=== PATIENT | female | born 1940 | race Caucasian/White ===

== ENCOUNTER → 2023-10-30 08:45 | Outpatient (REF) | payer MEDICARE, OTHER, SELFPAY ==
[2023-10-30 09:14] LABS: % Basophils 0.5 % (0-2); % Eosinophils 1.7 % (0-6); % Immature Granulocytes 0.2 % (0-0.5); % Lymphocytes 16.5 % (20.5-51.1); % Monocytes 15.3 % (1.7-9.3); % Neutrophils 65.8 % (42.2-75.2); Absolute Eosinophils 0.1 10^3/uL (0-0.7); Absolute Lymphocytes 0.7 10^3/uL (1.2-3.4); Absolute Monocytes 0.6 10^3/uL (0.1-0.6); Absolute Neutrophils 2.8 10^3/uL (1.4-6.5); Hematocrit 29.6 % (37.0-47.0); Hemoglobin 9.4 g/dL (12.0-16.0); Mean Corp Hgb Conc. 31.8 g/dL (33.0-37.0); Mean Corpuscular Volume 97.7 fL (81.0-99.0); Mean Platelet Volume 9.4 fL (7.4-10.4); Nucleated Red Blood Cells % 0 %; Platelet Count 179 10^3/uL (130-400); Red Blood Cell Count 3.03 10^6/uL (4.20-5.40); Red Cell Dist. Width 14.4 % (11.5-14.5); White Blood Cell Count 4.2 10^3/uL (4.8-10.8)
== END ==
LOC: REG 08:45
PROVIDERS: ATTENDING PHYSICIAN Family Medicine
DX: D64.9 Anemia, unspecified (principal)
CPT/HCPCS: 36415; 85025

== ENCOUNTER 2023-11-18 11:20 | Outpatient (RCR) | payer MEDICARE, OTHER, SELFPAY | END 2023-11-18 23:59 | disposition home or self-care (01) | LOC: RPT 11:20 | PROVIDERS: ATTENDING PHYSICIAN Nurse Practitioner Pediatrics; FAMILY PHYSICIAN Family Medicine | DX: R26.89 Other abnormalities of gait and mobility (principal); Z73.6 Limitation of activities due to disability; Z96.642 Presence of left artificial hip joint; S73.005D Unspecified dislocation of left hip, subsequent encounter; X50.9XXD Other and unspecified overexertion or strenuous movements or postures, subsequent encounter | CPT/HCPCS: 97110; 97162; 97530 ==

== ENCOUNTER 2023-12-16 10:45 | Outpatient (RCR) | payer MEDICARE, OTHER, SELFPAY | END 2023-12-16 23:59 | disposition home or self-care (01) | LOC: RPT 10:45 | PROVIDERS: ATTENDING PHYSICIAN Nurse Practitioner Pediatrics; FAMILY PHYSICIAN Family Medicine | DX: S73.005A Unspecified dislocation of left hip, initial encounter (principal); R26.89 Other abnormalities of gait and mobility; Z96.642 Presence of left artificial hip joint; Z73.6 Limitation of activities due to disability | CPT/HCPCS: 97110; 97530 ==

== ENCOUNTER 2024-01-18 11:01 | Outpatient (RCR) | payer MEDICARE, OTHER, SELFPAY | END 2024-01-18 23:59 | disposition home or self-care (01) | LOC: RPT 11:01 | PROVIDERS: ATTENDING PHYSICIAN Nurse Practitioner Pediatrics; FAMILY PHYSICIAN Family Medicine | DX: S73.005D Unspecified dislocation of left hip, subsequent encounter (principal); Z96.642 Presence of left artificial hip joint; R26.89 Other abnormalities of gait and mobility; Z73.6 Limitation of activities due to disability | CPT/HCPCS: 97110; 97530 ==

== ENCOUNTER 2024-01-24 13:04 | Emergency (ER) | payer MEDICARE, OTHER, SELFPAY ==
[2024-01-24] VITALS (10 sets, daily range): BP systolic 104–136; BP diastolic 50–102; BMI 29.4
--- NOTE | 2024-01-24 14:34 | ED.GENMED ---
History of Present Illness
General
Chief Complaint: Musculo-Skeletal Complaint
Source: patient
Time Seen by Provider: 01/24/24 13:56
Travel History
Have you had any contact with someone who has COVID-19?: No
Do you have any symptoms of coronavirus? Fever > 100 degrees, chills, cough, shortness of breath, sore throat, loss of taste or smell, muscle aches, or headache?: No
History of Present Illness
History of Present Illness:
83-year-old female who was in the garden gardening, says she was 'just cleared to bend' by her orthopedic doctor, bent over to excelsior picker a stool and felt a 'pop' and dislocated her left hip. She denies numbness, tingling, head injury, neck pain,
chest pain, shortness of breath, or other complaints. Patient had a hip dislocation a few months ago that was reduced in the emergency department and has been doing well since.
Past History
Past History
ED Past Medical History: GERD, HTN, Hypercholesterolemia, Hypothyroidism, Psychiatric (anxiety, depression) and Other (Migraines, Essential tremors, Diverticulitis, IBS, )
ED Past Surgical History: Orthopedic (Bilateral knee replacements. Bila hip replacements. )
Social History
Tobacco: Former smoker
Alcohol: Occasional
Drug: None
Personal:
Living: alone
Family History
Family History: CAD
Phy Exam
Physical Exam
Physical Exam:
GENERAL: Alert , in no apparent distress
EYE: pupils equal and reactive
NECK: Supple, no significant adenopathy.
ENT: o/p clr, mmm.
CARDIAC: Regular rate and rhythm .
LUNGS: Clear breath sounds bilaterally, no acute respiratory distress, no wheezes/rales/rhonchi
ABDOMEN: Soft, without focal tenderness, no r/g, no cvat
NEUROLOGICAL: Alert and oriented, no focal neuro deficits, baseline tremor noted
SKIN: Warm and dry, skin intact.
MUSCULOSKELETAL: No edema, well perfused. L hip shortened and int rotated, nl pulses
PSYCH: Normal and appropriate interaction.
Course
Orders/Labs/Results
Orders:
Orders
01/24/24 13:17
Hip, Left 1 View [CR Hip - LT without Pel 1 Vw] Urgent
Comment: portable please.
Reason For Exam: dislocation
01/24/24 13:49
Propofol [Diprivan] 20 ml .ROUTE .STK-MED
01/24/24 14:39
Hip, Left 1 View [CR Hip - LT without Pel 1 Vw] Urgent
Comment:
Reason For Exam: post reduction. Portable please
Vital Signs
Initial and Last Documented VS:
Initial Vital Signs
Temp Pulse Resp BP Pulse Ox
98.2 F 75 16 114/102 99
01/24/24 14:24 01/24/24 14:24 01/24/24 14:24 01/24/24 14:24 01/24/24 14:24
Last Documented Vital Signs
Temp Pulse Resp BP Pulse Ox
97.9 F 70 16 118/76 97
01/24/24 14:55 01/24/24 15:10 01/24/24 15:10 01/24/24 15:10 01/24/24 15:10
Procedures
Moderate Sedation
ASA Risk Score: Class II
Chart and allergies reviewed: Yes
Consent for anesthesia obtained: Yes
Time out completed (validating right patient & procedure): Yes
Moderate Sedation Start Time(when first medication is given): 14:27
History of difficult intubation: No
Airway free of obstruction: Yes
Patient has a gag reflex: Yes
Patient is able to open mouth: Yes
Patient has no dentures: Yes
Patient has no loose teeth: Yes
Medication administered by Provider during Moderate Sedation: IV Propofol (mg)
Total dose administered: 100
Time drug administered: 14:27
Moderate Sedation Procedure End Time: 14:37
Joint/Fracture Reduction
Left Hip:
Joint reduced: with anesthesia sedation
Injury was: closed
Further treatement: no treatment needed
Post reduction exam: stable
Capillary Refill: normal
Normal distal neurovascular exam?: Yes
*Critical Care Note
Total Time (30-74mins, 75-104mins- exclusive of procedures): Not Applicable
Update Note
Update Note:
Patient presents to the Emergency Department with left hip pain____
Number and Complexity of Problems Addressed at the Encounter
� Chronic conditions affecting care:
� Acute Exacerbation and/or Progression of Chronic Illness:
� Differential Diagnosis includes: But not limited to dislocation, fracture, strain, etc.
Amount and/or Complexity of Data to be Reviewed and Analyzed
� I performed an independent evaluation of and my interpretation is:
EKG:
CT:
Xrays: Read by me left superior hip dislocation noted
Laboratory Studies:
Other:
� Review of other/old records reveals:
� Clinical information was obtained by an independent historian:
� Prescriptions/Medications Considered but not given:
� Further testing considered but not performed:
Risk of Complications and/or Morbidity or Mortality of Patient Management
� Social determinants of health affecting care:
� Discussion with other providers (PCP, Hospitalists, Consultants, etc):
� Escalation of care including admission/observation vs risk of discharge considered: Status post procedural sedation hip reduced smoothly. Postreduction x-ray consistent with adequate reduction no fracture etc. [place] text sent
to Dr. Barlow and he responded, aware of events today and my recommendations for her to follow-up with him and be discharged in a knee immobilizer. Discussed with patient importance of follow-up and reasons to return to the ER.
ED Attending Note
-
Portions of this chart may have been created with voice recognition software.� Occasional wrong word or��sound alike� substitutions may have occurred due to the inherent limitations of voice recognition software.
Discharge Plan
Departure
Patient Disposition: Home (Routine Discharge)
Date of Disposition: 01/24/24
Time of Disposition: 15:29
Patient with high blood pressure during this ER visit?: Yes
Condition: Good
Discharge Problem:
hip dislocation, procedual sedation
Instructions: Hip Dislocation, MODERATE SEDATION ADULT, BLOOD PRESSURE
Prescriptions:
No Action
levothyroxine [Levoxyl] 50 MCG tablet
50 mcg PO DAILY
fluoxetine 20 MG capsule
20 mg PO DAILY
atorvastatin 20 mg Tablet
20 mg PO HS
omeprazole 20 mg Tablet,Delayed Release (Dr/Ec)
20 mg PO DAILY
multivitamin Tablet
1 tab PO DAILY
cholecalciferol (vitamin D3) [Vitamin D3] 50 mcg (2,000 unit) Tablet
50 mcg PO DAILY
docusate sodium 100 mg Capsule
100 mg PO BID Qty: 30 0RF
lidocaine 4 % Adhesive Patch,Medicated
2 patch topical DAILY Qty: 30 0RF
Rx Instructions:
apply to lower back
meloxicam 15 mg Tablet
15 mg PO DAILY Qty: 14 0RF
Rx Instructions:
Take with food.
DO NOT take within 2 hours of Aspirin.
sennosides [Senna Lax] 8.6 mg Tablet
17.2 mg PO BIDPRN PRN (Reason: constipation) Qty: 30 0RF
Rx Instructions:
Add to bowel regimen of Colace and fiber if no bowel movement occurs within next 3 days.
gabapentin 100 mg Capsule
200 mg PO TID Qty: 30 0RF
ondansetron HCl 4 mg tablet
4 mg PO Q6H PRN (Reason: nausea and vomiting) Qty: 30 0RF
lorazepam 0.5 MG tablet
0.5 mg PO Q8H PRN (Reason: anxiety) Qty: 0 0RF
Patient Comments:
08/19/2023: last filled 03/18/22, 90 tabs for 90 days from [facility]
Rx Instructions:
Home medication.
USE SPARINGLY WHILE ON DILAUDID TO PREVENT FALLS AND OVERSEDATION.
hydrochlorothiazide 12.5 mg Tablet
12.5 mg PO DAILY Qty: 0 0RF
Rx Instructions:
HOLD IF systolic blood pressure <130 while on Dilaudid.
metoprolol succinate [Toprol XL] 50 mg Tablet Extended Release 24 Hr
50 mg PO BID
calcium polycarbophil [FiberCon] 625 mg Tablet
625 mg PO DAILY
IBgard 90 mg Capsule,Delayed,Extend.Release
90 mg PO BIDPRN PRN (Reason: ibs)
ferrous sulfate 325 mg (65 mg iron) tablet
325 mg PO DAILY Qty: 60 0RF
Rx Instructions:
Over the counter.
Take daily to help with anemia.
acetaminophen [Tylenol Extra Strength] 500 mg tablet
1,000 mg PO Q6H PRN (Reason: mild pain)
Rx Instructions:
DO NOT exceed >4000 mg daily.
cephalexin 750 mg capsule
750 mg PO BID 3 Days Qty: 6 0RF
aspirin 325 mg Tablet
325 mg PO DAILY Qty: 30 0RF
Rx Instructions:
Stop taking 09/05/23
Referrals:
Aguila Conroy MD [Family Provider] -
Maximo Barlow MD [Active] - Next open appointment
Activity Restrictions/Additional Instructions:
PLEASE KEEP THE KNEE IMMOBILIZER ON MUCH POSSIBLE, AND CONTINUE TO FOLLOW PRECAUTIONS TO AVOID FURTHER EVENTS OF DISLOCATION. PLEASE CONTACT YOUR ORTHOPEDIC DOCTOR IN THE MORNING TO ARRANGE FOR FOLLOW UP. IF YOU DEVELOP SWELLING, FEVER,
NUMBNESS, WEAKNESS, INCREASING/NEW PAIN, OR OTHER WORRISOME SIGNS, GO TO THE ER IMMEDIATELY!
Interventions
Interventions:
*Risk Screen - Suicide Last Done: 01/24/24 13:12
*General Assessment Last Done: 01/24/24 13:12
*Neglect/Abuse Screening Last Done: 01/24/24 13:12
*ED COVID-19 Vaccine History Last Done: 01/24/24 13:12
ED-Musculoskeletal Assessment Last Done: 01/24/24 13:12
Discharge Date and Time
Print Language: SAMMARINESE
== END 2024-01-24 16:41 | disposition home or self-care (01) ==
LOC: EMR 13:04
PROVIDERS: EMERGENCY PHYSICIAN Emergency Medicine; FAMILY PHYSICIAN Family Medicine
DX: T84.021A Dislocation of internal left hip prosthesis, initial encounter (principal); X50.1XXA Overexertion from prolonged static or awkward postures, initial encounter; I10 Essential (primary) hypertension; Z87.891 Personal history of nicotine dependence
CPT/HCPCS: 27266; 99285; 99152; 73501

== ENCOUNTER → 2024-01-31 13:16 | Outpatient (REF) | payer MEDICARE, OTHER, SELFPAY ==
[2024-01-31 14:33] LABS: % Basophils 0.4 % (0-2); % Eosinophils 1.4 % (0-6); % Immature Granulocytes 0.2 % (0-0.5); % Lymphocytes 17.6 % (20.5-51.1); % Monocytes 11.5 % (1.7-9.3); % Neutrophils 68.9 % (42.2-75.2); Absolute Eosinophils 0.1 10^3/uL (0-0.7); Absolute Lymphocytes 0.9 10^3/uL (1.2-3.4); Absolute Monocytes 0.6 10^3/uL (0.1-0.6); Absolute Neutrophils 3.4 10^3/uL (1.4-6.5); Hematocrit 31.7 % (37.0-47.0); Hemoglobin 10.6 g/dL (12.0-16.0); Mean Corp Hgb Conc. 33.4 g/dL (33.0-37.0); Mean Corpuscular Hgb 30.5 pg (27.0-31.0); Mean Corpuscular Volume 91.1 fL (81.0-99.0); Nucleated Red Blood Cells % 0 %; Platelet Count 210 10^3/uL (130-400); Red Blood Cell Count 3.48 10^6/uL (4.20-5.40); Red Cell Dist. Width 13.9 % (11.5-14.5); White Blood Cell Count 4.9 10^3/uL (4.8-10.8)
[2024-01-31 14:43] LABS: Erythrocyte Sed Rate 28 mm/hour (0-20)
[2024-01-31 14:57] LABS: HDL Cholesterol 80 mg/dl; Iron 81 ug/dl (37-170); LDL Cholesterol, Calculated 33 mg/dl; Total Cholesterol 132 mg/dl (50-199); Triglyceride 95 mg/dl (10-149); Very Low Density Lipoprotein 19 mg/dl (0-30)
[2024-01-31 15:05] LABS: Percent Saturation 28 % (20-50); Total Iron Binding Capacity 284 ug/dl (265-497)
== END ==
LOC: REG 13:16
PROVIDERS: ATTENDING PHYSICIAN Physician Assistant Surgical; FAMILY PHYSICIAN Family Medicine; OTHER PHYSICIAN Internal Medicine Cardiovascular Disease
DX: M25.552 Pain in left hip (principal); D64.9 Anemia, unspecified; E78.2 Mixed hyperlipidemia; I25.10 Atherosclerotic heart disease of native coronary artery without angina pectoris
CPT/HCPCS: 36415; 73700; 80061; 83540; 83550; 85025; 85652; 86140

== ENCOUNTER 2024-03-15 08:08 | Inpatient (IN) | payer MEDICARE, OTHER, SELFPAY ==
--- NOTE | 2024-02-15 09:05 | CM ---
Patient is scheduled for a L TH Revision on 03/15/24. Spoke with patient prior to surgery via telephone. Patient had a L THR (July 2023)and R THR (April 2023) at . Reintroduced role of Orthopedic Navigator. Patient reports that she lives
alone in a two story home. There is one step to enter and 13 steps to full bathroom and bedroom. There is half bath on entry level management. She is staying on the first floor and will do so after this surgery. She currently functions independently and uses
a rolling walker outside of the house. She also has a cane, hip kit and raised toilet seat. She has had services through [facility]. PCP is Dr. Conroy.
Discussed orthopedic program and post surgical plans. Reviewed anticipated length of stay and that goal is for her to return home at discharge. Also reviewed outpatient PT. Patient will need home care as she lives alone and does not have transport
for therapy. She states that her son will stay with her when she first goes home. She anticipates a two night length of stay.
Patient will complete online education.
Plan: Orthopedic Navigator will remain available to assist with the care of patient and will reassess discharge needs after surgery.
[2024-02-23 12:29] VITALS: BMI 27.9
[2024-02-23 14:48] LABS: Hematocrit 30.7 % (37.0-47.0); Hemoglobin 10.5 g/dL (12.0-16.0); Mean Corp Hgb Conc. 34.2 g/dL (33.0-37.0); Mean Corpuscular Hgb 31.3 pg (27.0-31.0); Mean Corpuscular Volume 91.4 fL (81.0-99.0); Mean Platelet Volume 10.1 fL (7.4-10.4); Platelet Count 190 10^3/uL (130-400); Red Blood Cell Count 3.36 10^6/uL (4.20-5.40); Red Cell Dist. Width 14.2 % (11.5-14.5); White Blood Cell Count 5.1 10^3/uL (4.8-10.8)
--- NOTE | 2024-02-23 15:40 | HPS.HSE ---
Family Physician
-
Family Physician: Aguila Conroy
Chief Complaint
-
Recurrent dislocation of left hip.
History of Present Illness
The patient is an 83 year old female presenting today for a recurrent dislocation of her left hip. The patient previously underwent a left total hip arthroplasty with Dr. Maximo Barlow in July 2023. Unfortunately, since then, she has
sustained 2 dislocations, the last most recently while picking weeds in her garden. Her recurrent dislocations are greatly interfering with her activities of daily living and are overall impacting her quality of life. It is advised she proceed with
a revision of her left total hip arthroplasty at this time. She denies any current complaints today such as chest pain, shortness of breath, nausea, vomiting, diarrhea, lightheadedness, dizziness, cough, sore throat, or fever.
Medical History
Past Medical History
Past Medical History: Reports Other
Additional Past Medical History:
1. Recurrent left hip dislocation.
2. Osteoarthritis, status post left total hip arthroplasty, 07/2023, by Dr. Maximo Barlow, left total knee arthroplasty, 2017, by Dr. Benito Velez, and right total knee arthroplasty, 2020, by Dr. Benito Velez.
3. 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 Maximo Barlow.
4. Hypertension.
5. Hyperlipidemia.
6. Coronary artery calcifications on previous CT scan.
7. Orthostatic hypotension after right total hip arthroplasty.
8. History of vasovagal syncope.
9. Pulmonary nodules.
10. GERD.
11. Colon polyps.
12. Diverticulosis.
13. Irritable bowel syndrome with diarrhea.
14. Lumbar degenerative disc disease.
15. Lumbar stenosis.
16. Migraines.
17. Benign essential tremor.
18. Left cerebellar calcification on brain MRI 08/2023.
19. Ambulatory dysfunction with history of falls.
20. Hypothyroidism.
21. Iron deficiency anemia, on oral supplementation.
22. Osteopenia.
23. Anxiety.
24. Depression.
25. Remote history of tobacco abuse.
Past Surgical History: Reports Other
Additional Past Surgical History:
1. Left total hip arthroplasty, 07/2023, by Dr. Maximo Barlow.
2. Right total hip arthroplasty, 04/2023, by Dr. Maximo Barlow.
3. Right total knee arthroplasty, 2020, by Dr. Benito Velez.
4. Left total knee arthroplasty, 2018, by Dr. Benito Velez.
5. Left prosthetic hip reduction 09/2023.
6. Right knee arthroscopic debridement.
7. D&C.
Social History
Tobacco: Former Smoker (She is a former one pack per day cigarette smoker who quit tobacco products altogether at 41 years of age.)
Alcohol: Other (Rare)
Living: Other (The patient lives in a two-story home independently. She reports that her son, various neighbors, and friends will be checking in on her post-operatively. )
Family History
Family History: Not pertinent
Allergies / Home Medications
Allergy/Medication List:
MEDICATIONS:
1. Acetaminophen 1000 mg p.o. every six hours as needed.
2. Aspirin 81 mg p.o. daily.
3. Atorvastatin 20 mg p.o. at bedtime.
4. Cholecalciferol 50 mcg p.o. daily.
5. Essential one with CoQ10 1 capsule p.o. daily.
6. Fluoxetine 20 mg p.o. daily.
7. Hydrochlorothiazide 12.5 mg p.o. daily.
8. IBgard 90 mg p.o. twice a day if needed.
9. Levothyroxine 50 mcg p.o. daily.
10. Metamucil 0.4 mg p.o. daily.
11. Propranolol 40 mg p.o. twice a day.
12. Omeprazole 20 mg p.o. every other day.
13. Ferrous sulfate 325 mg p.o. daily.
ALLERGIES: Morphine. Sulfa. Gabapentin.
Review of Systems
-
A 12 point ROS was completed and negative except as noted: Yes
Physical Exam
Vital Signs
Blood pressure 143/70. Heart rate 66. Respirations 18. Pulse ox 98%.
Height 5 feet, 5 inches. Weight 76 kg. BMI 27.9.
Physical Exam
General: Well Developed, Well Nourished and No Apparent Distress
HEENT: NormoCephalic, Moist mucous membranes, Atraumatic and PERRLA
Respiratory: Clear
Cardiac: Regular Rhythm
GI: Soft, Non Tender and Non Distended
Musculoskeletal: Other (Essential tremor of upper extremities noted. Right hip: nodule over the right hip noted. Left hip: well healed surgical incision. )
Skin: Warm and Dry
Neuro: AO x 3, Nonfocal/grossly intact and Other (Mild voice tremor noted. )
Psych: Anxious
Laboratory Results
-
02/23/24 12:18
DIAGNOSTIC STUDIES as of 02/23/2024: Sodium 138. Potassium 4.1. BUN 27. Creatinine 0.7. Glucose 81. Hemoglobin A1c 5.5. Calcium 9.9. AST 27. ALT 23. Albumin 4.3. Type and screen B negative. MRSA nasal swab negative.
EKG 02/23/2024: Normal sinus rhythm.
Echocardiogram 10/09/2022: Normal biventricular size and systolic function without regional wall motion abnormality. Estimated LVEF 55-60%. Aortic sclerosis without stenosis.
Nuclear stress test 09/29/2022: Overall, normal Lexiscan myocardial perfusion stress test. This study is consistent with low cardiovascular risk. A previous Myoview stress test from 01/22/06 had normal findings.
Impression/Plan
-
CLEARANCES:
1. Primary medical, Radha Kimbrough PA-C, cleared.
Primary phone number: [phone].
2. Cardiology, Dr. Jacky Davis, cleared.
3. Dental waived.
IMPRESSION/PLAN:
1. Recurrent dislocation of the left hip in need of a revision of a left total hip arthroplasty with Dr. Maximo Barlow on 03/15/2024. The benefits and risks of the procedure have been explained to the patient. The patient understands these risks
and wishes to proceed.
2. Deep vein thrombosis prophylaxis: Aspirin with bilateral venous compression devices.
3. Pain management: We will use Dilaudid as needed for moderate to severe post-operative pain. We will also include Tylenol, Meloxicam, Dexamethasone 4 mg p.o. twice a day for three days post-surgery, and lidocaine patches. The patient reports that
this pain medication regimen worked well after her prior left total hip arthroplasty. Gabapentin will be avoided as this previously exacerbated her essential tremor.
4. Iron deficiency anemia: Her hemoglobin will be monitored closely during admission. She was advised to continue her oral iron supplement nat-operatively.
5. Orthostatic hypotension after previous joint arthroplasty: Orthostatic vital signs will be monitored during admission. She will be provided with IV fluids and Midodrine will be ordered if indicated.
6. Ambulatory dysfunction with history of falls: She will be placed on fall precautions post-surgery.
7. Irritable bowel syndrome with diarrhea: Colace will only be used initially for post-operative bowel regimen.
Patient's home phone number: [phone].
Patient's cell phone number: [phone].
Patient's contact (Rachael Barraza - Friend): [phone].
[2024-02-23 15:42] LABS: ALT (SGPT) 23 U/L (0-35); AST (SGOT) 27 U/L (14-36); Albumin 4.3 g/dl (3.5-5.0); Alkaline Phosphatase 139 U/L (38-126); Blood Urea Nitrogen 27 mg/dl (7-17); Calcium 9.9 mg/dl (8.4-10.2); Carbon Dioxide 25 mmol/L (22-30); Chloride 103 mmol/L (98-107); Estimated Creatinine Clearance 64 ml/min; Glucose 81 mg/dl (70-99); Potassium 4.1 mmol/L (3.5-5.1); Sodium 138 mmol/L (135-145); Total Protein 6.7 g/dl (6.3-8.2); eGFR > 60.00
[2024-02-23 15:58] VITALS: BMI 27.9
[2024-02-24 13:14] LABS: Glycohemoglobin (HgbA1c) 5.5 % (4.0-5.6)
[2024-03-15] VITALS (21 sets, daily range): BP systolic 75–131; BP diastolic 40–92; PULSE 78–93; O2SAT 97; BMI 27.9
[2024-03-15] MEDS: NORMOSOL-R 1000 IV ×2 (10:11→13:53)
[2024-03-15] MEDS: TYLENOL 650 MG PO ×4 (10:12→20:07)
[2024-03-15] MEDS: CELEBREX 200 MG PO (10:17)
[2024-03-15] MEDS: DILAUDID 2 MG PO (13:56)
--- NOTE | 2024-03-15 15:29 | W.PN.UPDATE ---
Update Note
Progress Note Update
Recurrent left hip dislocation s/p Revision of L ASHKAN w/ Dr Barlow 03/15/24
DVT prophylaxis - ASA, b/l venous foot pumps
HTN - monitor BP
Orthostatic hypotension after R ASHKAN - monitor orthostatic VS q8h
- IVF running
- Encourage oral hydration
- Consider Midodrine
GERD - continue PPI therapy
Irritable bowel syndrome with diarrhea - Colace ONLY for post-op bowel regimen initially
Ambulatory dysfunction with history of falls - on fall precautions
Iron deficiency anemia, on oral supplementation - non-invasive hgb in AM
- Oral iron continued nat-op
OA, status post L ASHKAN, 07/2023, by Dr Barlow, L TKA, 2017, by Dr Velez, and R TKA, 2020, by Dr Velez
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
Hyperlipidemia
Coronary artery calcifications on previous CT scan
History of vasovagal syncope
Pulmonary nodules
Colon polyps
Diverticulosis
Lumbar degenerative disc disease
Lumbar stenosis
Migraines
Benign essential tremor
Left cerebellar calcification on brain MRI 08/2023
Hypothyroidism
Osteopenia
Anxiety
Depression
Remote history of tobacco abuse
--- NOTE | 2024-03-15 17:05 | PTCARENOTE ---
Pt arrived to 2S in bed. Full assessment completed. IVF infusing per order. B/L LE neurovascular assessment WDL. L hip aquacel with a scant amount of drainage. Bed locked and in the lowest position, safety maintained. Oriented to room and call moon.
[2024-03-15] MEDS: FEOSOL 325 MG PO (17:16)
[2024-03-15] MEDS: PROTONIX 40 MG PO (17:16)
[2024-03-15] MEDS: ASPIRIN 325 MG PO (17:16)
[2024-03-15] MEDS: PROZAC 20 MG PO (17:16)
[2024-03-15] MEDS: VITAMIN D3 (cholecalciferol) 50 MCG PO (17:16)
[2024-03-15] MEDS: LIDOCAINE 4% PATCH 2 PATCH TOPICAL (17:17)
[2024-03-15] MEDS: COLACE 100 MG PO (20:05)
[2024-03-15] MEDS: BACTROBAN 2% OINTMENT 1 APPLIC NASAL (20:05)
[2024-03-15] MEDS: ANCEF 5 IV (20:05)
[2024-03-15] MEDS: INDERAL PO (20:06)
[2024-03-15] MEDS: DECADRON 4 MG PO (20:09)
[2024-03-15] MEDS: DILAUDID 0.5 MG IV (20:13)
[2024-03-15] MEDS: LIPITOR 20 MG PO (22:01)
[2024-03-16] VITALS (10 sets, daily range): BP systolic 91–138; BP diastolic 52–99; PULSE 67–88; O2SAT 100
[2024-03-16] MEDS: DILAUDID 0.5 MG IV (00:15)
[2024-03-16] MEDS: TYLENOL 650 MG PO ×5 (00:16→23:26)
[2024-03-16] MEDS: ANCEF 5 IV (03:53)
[2024-03-16] MEDS: SYNTHROID 50 MCG PO (05:50)
[2024-03-16] MEDS: DILAUDID 2 MG PO ×4 (05:50→23:28)
--- NOTE | 2024-03-16 06:33 | PTCARENOTE ---
16:39 pt admitted to unit, [address], pt aaox3, IVF infusing, pt c/o pain, joo Tylenol administered. Pt oriented to unit and quickly fell asleep shortly after her son ad left.
[2024-03-16] MEDS: INDERAL PO (08:00)
[2024-03-16] MEDS: VITAMIN D3 (cholecalciferol) 50 MCG PO (08:00)
[2024-03-16] MEDS: FEOSOL 325 MG PO (08:00)
[2024-03-16] MEDS: ASPIRIN 325 MG PO (08:00)
[2024-03-16] MEDS: LIDOCAINE 4% PATCH 2 PATCH TOPICAL (08:00)
[2024-03-16] MEDS: PROTONIX 40 MG PO (08:00)
[2024-03-16] MEDS: DECADRON 4 MG PO ×2 (08:00→19:24)
[2024-03-16] MEDS: MOBIC 15 MG PO (08:01)
[2024-03-16] MEDS: COLACE 100 MG PO ×2 (08:01→19:24)
[2024-03-16] MEDS: PROZAC 20 MG PO (08:01)
[2024-03-16] MEDS: BACTROBAN 2% OINTMENT 1 APPLIC NASAL ×2 (08:02→19:26)
--- NOTE | 2024-03-16 08:54 | CM ---
Reviewed chart and held rounds with PT, OT and nursing. Patient admitted as planned for Revision L TH Revision. Met with patient at bedside. Confirmed information previously obtained for assessment. Also discussed discharge plans. The plan is for
patient to return home at discharge. Patient continues to state that she needs to stay two nights and that she doesn't 'feel safe' returning home today. Her son will be staying with her for two weeks. Reviewed VN services including start of care
(tentatively 03/17), services to be ordered (PT, SN. She does not feel she needs home OT) and frequency/duration of services. Options list provided and PAC data reviewed. Patient selects VN.
Patient has all needed DME at home.
VN referral was completed and sent to [facility] through [employer] with request for start of care on 03/17. Confirmation received of their ability to accept case. consumer relations complaint clerk to fax discharge instructions to VN when complete.
Patient will use [facility] pharmacy for discharge prescriptions.
[2024-03-16] MEDS: TYLENOL PO ×2 (09:51→15:25)
--- NOTE | 2024-03-16 15:04 | W.PN.ORTHO ---
Today's Communication / Plan
-
Continue to monitor pain and BP.
Continue to work w/ PT and OT to ensure safe d/c home.
D/c when clinically stable.
Assessment
.
Distal Motor Intact: Yes
Dressing:
Clean, dry and intact.
Assessment:
Recurrent left hip dislocation s/p Revision of L ASHKAN w/ Dr Barlow 03/15/24
DVT prophylaxis - ASA, b/l venous foot pumps
HTN - pt somewhat hypotensive likely 2* current Dilaudid; however, is remaining asymptomatic - continue to monitor
Orthostatic hypotension after R ASHKAN - monitor orthostatic VS q8h
- s/p IVF
- Continue oral hydration
- Consider Midodrine; not indicated at this point given orthostatic VS from earlier
GERD - continue PPI therapy
Irritable bowel syndrome with diarrhea - Colace ONLY for post-op bowel regimen initially
Ambulatory dysfunction with history of falls - on fall precautions
Iron deficiency anemia, on oral supplementation - non-invasive hgb 9 POD 1
- Oral iron continued nat-op
- Asymptomatic and hemodynamically stable
OA, status post L ASHKAN, 07/2023, by Dr Barlow, L TKA, 2017, by Dr Velez, and R TKA, 2020, by Dr Velez
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
Hyperlipidemia
Coronary artery calcifications on previous CT scan
History of vasovagal syncope
Pulmonary nodules
Colon polyps
Diverticulosis
Lumbar degenerative disc disease
Lumbar stenosis
Migraines
Benign essential tremor
Left cerebellar calcification on brain MRI 08/2023
Hypothyroidism
Osteopenia
Anxiety
Depression
Remote history of tobacco abuse
Plan
.
Surgery / Date: Revision of L ASHKAN w/ Dr Barlow 03/15/24
Activity:
Out of bed.
PT/OT
Discharge Plan: Home w/ VN
Subjective
.
.:
Patient examined resting comfortably in bed earlier today.
Currently on multimodal pain regimen for L hip pain. Avoiding Neurontin due to previous ADR and muscle relaxants due to fear of oversedation/falls.
Denies any other new complaints.
Vital Signs and Labs
.
Vital Signs and Labs:
Lab Results
02/23/24 12:18
02/23/24 12:18
Temp Pulse Resp BP Pulse Ox
97.7 F 73 16 120/65 96
03/16/24 11:50 03/16/24 11:50 03/16/24 11:50 03/16/24 11:50 03/16/24 11:50
Non-invasive Hgb result: 9.0
Physical Exam
-
HEENT: No pallor, cyanosis, or jaundice. Throat clear.
NECK: Supple. No JVD.
RESPIRATORY: Lungs clear to auscultation.
CVS: S1, S2 normal. RRR.�
ABDOMEN: Soft, non-tender. No distension.
EXTREMITIES: Strength equal, no calf pain with palpation/dorsiflexion. Calves soft.
INSTRUMENT OPERATOR: AOx3. No focal deficits. experimental mechanic spacecraft grossly intact
[2024-03-16] MEDS: INDERAL 40 MG PO (19:25)
[2024-03-16] MEDS: LIPITOR 20 MG PO (23:25)
[2024-03-17] MEDS: TYLENOL PO (03:28)
[2024-03-17] MEDS: SYNTHROID 50 MCG PO (05:37)
[2024-03-17 07:00] VITALS: BP 119/59
[2024-03-17] MEDS: PROTONIX 40 MG PO (08:05)
[2024-03-17] MEDS: FEOSOL 325 MG PO (08:05)
[2024-03-17] MEDS: TYLENOL 650 MG PO (08:05)
[2024-03-17] MEDS: ASPIRIN 325 MG PO (08:05)
[2024-03-17] MEDS: COLACE 100 MG PO (08:05)
[2024-03-17] MEDS: VITAMIN D3 (cholecalciferol) 50 MCG PO (08:07)
[2024-03-17] MEDS: DECADRON 4 MG PO (08:07)
[2024-03-17] MEDS: MOBIC 15 MG PO (08:07)
[2024-03-17] MEDS: INDERAL 40 MG PO (08:08)
[2024-03-17] MEDS: LIDOCAINE 4% PATCH 2 PATCH TOPICAL (08:08)
[2024-03-17] MEDS: PROZAC 20 MG PO (08:10)
[2024-03-17] MEDS: DILAUDID 2 MG PO (08:13)
--- NOTE | 2024-03-17 08:13 | CM ---
Reviewed chart and held rounds with PT, OT and nursing. Met with patient at bedside. Discussed discharge plans. The plan is for patient to return home at discharge. Patient feels ready to go home today and is ambulating independently in her room.
Her son will be staying with her for two weeks. Reviewed VN services including start of care (03/18), services ordered (PT, SN. She does not feel she needs home OT) and frequency/duration of services. Patient continues to select VN.
Patient has all needed DME at home.
telephone clerk to fax discharge instructions to VN when complete.
Patient will use [facility] pharmacy for discharge prescriptions.
--- NOTE | 2024-03-17 08:34 | W.DCSUMMARY ---
Discharge Summary
Discharge Data
Date of Admission: 03/15/24
Date of Discharge: 03/17/24
-
Pending Results: No
Hospital Course
The patient underwent revision left total hip arthroplasty for instability with Dr. Barlow without complications. The patient recovered in the PACU and was transferred to the floor. The postoperative course remained uncomplicated. At the time of
discharge, the patient was noted to be tolerating a regular diet, ambulating with adherence to weightbearing and activity restrictions, able to accomplish activities of daily living at baseline level, and had pain controlled on oral medications.
Prior to discharge, the patient was provided with appropriate discharge/follow-up/return instructions, and discharge medications
Discharge Plan
-
Patient Disposition: Home with Home Care
Discharge Diagnosis/Procedures: Recurrent left hip dislocation s/p Revision of L ASHKAN w/ Dr Barlow 03/15/24
Condition: Good
Diet: Other diet
Additional Diets: Diabetic carb controlled x1 week for wound healing/infection prevention; then resume regular diet.
Activity: As tolerated and With Walker
Driving Restrictions: Not until seen by your Dr
Bathing Restrictions: OK to Shower
Other Services: VN, PT and OT
Wound Care: Dressing to be removed 1 week post-surgery.
Stand Alone Forms: Total Hip/Knee Replacement D/C
Referrals:
[facility] [Outside] - in one day (Physical therapy and nursing)
Aguila Conroy MD [Family Provider] -
Maximo Barlow MD [Active] - in two weeks
Prescriptions:
New
mupirocin 2 % ointment
1 applic intranasal BID Qty: 1 0RF
Patient Comments:
started treatment on wednesday03/13/24 and completed BID, last took at home 03/15/24 in am
No Action
levothyroxine [Levoxyl] 50 MCG tablet
50 mcg PO DAILY
fluoxetine 20 MG capsule
20 mg PO DAILY
atorvastatin 20 mg Tablet
20 mg PO HS
omeprazole 20 mg Tablet,Delayed Release (Dr/Ec)
20 mg PO .EVERY OTHER DAY
cholecalciferol (vitamin D3) [Vitamin D3] 50 mcg (2,000 unit) Tablet
50 mcg PO DAILY
hydrochlorothiazide 12.5 mg Tablet
12.5 mg PO DAILY Qty: 0 0RF
Rx Instructions:
HOLD IF systolic blood pressure <130 while on Dilaudid.
IBgard 90 mg Capsule,Delayed,Extend.Release
90 mg PO BIDPRN PRN (Reason: ibs)
ferrous sulfate 325 mg (65 mg iron) tablet
325 mg PO DAILY Qty: 60 0RF
Rx Instructions:
Over the counter.
Take daily to help with anemia.
acetaminophen [Tylenol Extra Strength] 500 mg tablet
1,000 mg PO Q6H PRN (Reason: mild pain)
Rx Instructions:
DO NOT exceed >4000 mg daily.
propranolol 40 mg Tablet
40 mg PO BID
aspirin 81 mg Tablet
81 mg PO DAILY
Essential One With Coq10
1 cap PO DAILY
psyllium husk [Metamucil] 0.4 gram Capsule
0.4 g PO DAILY
Discharge Date and Time
Print Language: GUAMANIAN
[2024-03-17 12:00] VITALS: BP 124/76
== END 2024-03-17 12:47 | disposition home health service (06) | DRG 468 ==
LOC: 2 SOUTH 08:08
PROVIDERS: ADMITTING PHYSICIAN Orthopaedic Surgery; FAMILY PHYSICIAN Family Medicine
PROC: 0SRB0J9 Replacement of Left Hip Joint with Synthetic Substitute, Cemented, Open Approach (ICD-10-PCS; 2024-03-15)
PROC: 0SPB0JZ Removal of Synthetic Substitute from Left Hip Joint, Open Approach (ICD-10-PCS; 2024-03-15)
DX: M24.452 Recurrent dislocation, left hip (principal); I10 Essential (primary) hypertension; K21.9 Gastro-esophageal reflux disease without esophagitis
CPT/HCPCS: 36415; 73502; 80053; 83036; 85027; 86850; 86900; 86901; 87070; 93005; 97116; 97162; 97166; 97530; C1713; C1776

== ENCOUNTER 2024-03-20 23:42 | Inpatient (IN) | payer MEDICARE, OTHER, SELFPAY ==
[2024-03-20 20:09] VITALS: BP 170/83
[2024-03-20 20:26] LABS: % Basophils 0.1 % (0-2); % Immature Granulocytes 3.1 % (0-0.5); % Lymphocytes 9.1 % (20.5-51.1); % Monocytes 11.9 % (1.7-9.3); % Neutrophils 75.8 % (42.2-75.2); Absolute Immature Granulocytes 0.4 10^3/uL (0-0.05); Absolute Lymphocytes 1.1 10^3/uL (1.2-3.4); Absolute Monocytes 1.4 10^3/uL (0.1-0.6); Absolute Neutrophils 8.9 10^3/uL (1.4-6.5); Hematocrit 21.2 % (37.0-47.0); Hemoglobin 7.1 g/dL (12.0-16.0); Mean Corp Hgb Conc. 33.5 g/dL (33.0-37.0); Mean Corpuscular Hgb 31.8 pg (27.0-31.0); Mean Corpuscular Volume 95.1 fL (81.0-99.0); Mean Platelet Volume 9.4 fL (7.4-10.4); Nucleated Red Blood Cells % 0.2 %; Platelet Count 210 10^3/uL (130-400); Red Blood Cell Count 2.23 10^6/uL (4.20-5.40); Red Cell Dist. Width 14.8 % (11.5-14.5); White Blood Cell Count 11.7 10^3/uL (4.8-10.8)
[2024-03-20 20:46] LABS: ALT (SGPT) 32 U/L (0-35); AST (SGOT) 31 U/L (14-36); Albumin 3.8 g/dl (3.5-5.0); Alkaline Phosphatase 101 U/L (38-126); Blood Urea Nitrogen 43 mg/dl (7-17); Calcium 9.3 mg/dl (8.4-10.2); Carbon Dioxide 25 mmol/L (22-30); Chloride 107 mmol/L (98-107); Glucose 108 mg/dl (70-99); Potassium 4.4 mmol/L (3.5-5.1); Sodium 139 mmol/L (135-145); Total Bilirubin 1.1 mg/dl (0.2-1.3); eGFR 50.48
[2024-03-20 21:56] VITALS: BP 147/83
--- NOTE | 2024-03-20 22:36 | ED.GENMED ---
History of Present Illness
General
Chief Complaint: Skin Problem
Source: patient
Exam Limitations: none
Time Seen by Provider: 03/20/24 22:15
History of Present Illness
History of Present Illness:
This is a 83 year old female that comes in by ambulance with c/o bleeding from the left hip. States that she is at home with her son and tonight she went to get up from the chair and she felt wet. States that there was blood from the left hip.
States that she just had a revison of the left hip done on Wednesday. . States that she has been feeling dizzy. Denies any fever, chills, chest pain, SOB, abd pain, nausea, vomiting, diarrhea, headache, urinary burning .
Past History
Past History
ED Past Medical History: GERD, HTN, Hypercholesterolemia, Hypothyroidism, Psychiatric (anxiety, depression) and Other (Migraines, Essential tremors, Diverticulitis, IBS, )
ED Past Surgical History: Gynecological (D & C) and Orthopedic (Bilateral knee replacements. Bila hip replacements. )
Social History
Tobacco: Former smoker
Alcohol: None
Drug: None
Personal:
Living: alone (Son is with her right now)
Family History
Family History: CAD
Review of Systems
Review of Systems
All Other Systems: ROS reviewed and negative except as documented in HPI and ROS
Constitutional: Reports no symptoms; Denies fever or chills
EENT: Reports no symptoms
Respiratory: Denies cough or trouble breathing
Cardiac: Reports no symptoms; Denies chest pain
ABD/GI: Reports no symptoms; Denies abdominal pain, nausea, vomiting or diarrhea
: Reports no symptoms; Denies dysuria, frequency or urgency
Musculoskeletal: Reports other (Limited ROM left leg)
Skin: Reports other (Incision line with desiree intack. No obvious area of bleeding noted. Dressing saturated. )
Neurological: Reports dizzy; Denies headache
Psychiatric: Reports no symptoms
Phy Exam
General Physical Exam
General Presentation: no apparent distress
General age: appears stated age
General Skin: warm and dry
General Habitus: elderly
General Mental: alert
General Hydration: appears well hydrated
ENT Exam
ENT Exam: TM's normal, pharynx normal and neck supple
Eye Exam
Eye Exam: EOMI
Cardiovascular Exam
Cardiovascular Exam: regular rate/rhythm and normal peripheral pulses
Pulmonary Exam
Pulmonary Exam: lungs clear, no respiratory distress, no rales, chest non tender, no crackles, no rhonchi, no wheezing and no cough
Gastrointestinal Exam
Gastrointestinal Exam: normal bowel sounds, non tender, soft, no organomegaly, no pulsatile mass and non distended
Musculoskeletal Exam
Musculoskeletal Exam: other (Limited ROM left leg due do recent surgery, )
Skin Exam
Skin Exam: normal color, warm/dry, no rash, no petechia and other (Incision line with desiree noted, no obvious area of bleeding, Dressing saturated. )
Psychiatric Exam
Psychiatric Exam: normal mood/affect
Course
Orders/Labs/Results
Orders:
Orders
03/20/24 20:16
CMP [Comprehensive Metabolic Panel] Urgent
Complete Blood Count/With Diff Urgent
03/20/24 22:31
* Blood Bank Products Urgent
Blood Bank Products: *Packed RBC Leuko(PRBC's)
Quantity: 2
Transfuse Today: Yes
Reason: Anemia
IV Insert/Care/Rem.- Treatment PRN
Abnormal Lab Results
03/20/24
20:16
WBC 11.7 H 10^3/uL
(4.8-10.8)
RBC 2.23 L 10^6/uL
(4.20-5.40)
Hgb 7.1 L g/dL
(12.0-16.0)
Hct 21.2 L %
(37.0-47.0)
MCH 31.8 H pg
(27.0-31.0)
RDW 14.8 H %
(11.5-14.5)
Abs Immat Gran (auto) 0.4 H 10^3/uL
(0-0.05)
Absolute Neuts (auto) 8.9 H 10^3/uL
(1.4-6.5)
Absolute Lymphs (auto) 1.1 L 10^3/uL
(1.2-3.4)
Absolute Monos (auto) 1.4 H 10^3/uL
(0.1-0.6)
Immature Gran % 3.1 H %
(0-0.5)
Neutrophils % 75.8 H %
(42.2-75.2)
Lymphocytes % 9.1 L %
(20.5-51.1)
Monocytes % 11.9 H %
(1.7-9.3)
BUN 43 H mg/dl
(7-17)
Creatinine 1.1 H mg/dL
(0.6-1.0)
Glucose 108 H mg/dl
(70-99)
Total Protein 6.0 L g/dl
(6.3-8.2)
03/20/24 20:16
03/20/24 20:16
Leukocytosis, H/H very low compared to prior labs, has drpped 3 grams, Dehydration. glucose nonfasting. Total protein low.
Vital Signs
Initial and Last Documented VS:
Initial Vital Signs
Temp Pulse Resp BP Pulse Ox
98.3 F 79 20 170/83 99
03/20/24 20:09 03/20/24 20:09 03/20/24 20:09 03/20/24 20:09 03/20/24 20:09
Last Documented Vital Signs
Temp Pulse Resp BP Pulse Ox
98.0 F 70 14 147/83 100
03/20/24 21:56 03/20/24 21:56 03/20/24 21:56 03/20/24 21:56 03/20/24 21:56
MDM/Problems Addressed
Differential Diagnosis Includes:
Bleeding from hip revision,
MDM/Problems Addressed:
This is a 83 year old female that comes in with c/o bleeding from the left hip. States that she just had a hip revision on Wednesday. States that she went to get out of the chair and there was blood from the hip. States that she has been dizzy.
Will get labs and admit as patient Hgb down 3 grams Will order blood and put Orthopedics on consult.
Chronic conditions affecting care:
Recent hip surgery
Acute Exacerbation and/or Progression of Chronic Illness:
Hip surgery
*Pulse Oximetry
Patient hypoxic: no
*EKG
Interpreted by ED Provider?: NA
Rate: EKG- N/A
*Box Repairer Interpretation
Rate: Box Repairer- N/A
*Critical Care Note
Total Time (30-74mins, 75-104mins- exclusive of procedures): Not Applicable
ED Attending Note
-
Portions of this chart may have been created with voice recognition software.� Occasional wrong word or��sound alike� substitutions may have occurred due to the inherent limitations of voice recognition software.
Discharge Plan
Departure
Patient Disposition: Admit
Date of Disposition: 03/20/24
Time of Disposition: 22:50
Admit to: Med/Surg
Presentation/result/management discussed w/ accepting MD/DO: Hospitalist
Patient with high blood pressure during this ER visit?: Yes
Condition: Good
Covid-19: Not Applicable
Discharge Problem:
Low hemoglobin, Bleeding from left hip revision
Prescriptions:
No Action
levothyroxine [Levoxyl] 50 MCG tablet
50 mcg PO DAILY
fluoxetine 20 MG capsule
20 mg PO DAILY
atorvastatin 20 mg Tablet
20 mg PO HS
omeprazole 20 mg Tablet,Delayed Release (Dr/Ec)
20 mg PO .EVERY OTHER DAY
cholecalciferol (vitamin D3) [Vitamin D3] 50 mcg (2,000 unit) Tablet
50 mcg PO DAILY
hydrochlorothiazide 12.5 mg Tablet
12.5 mg PO DAILY Qty: 0 0RF
Rx Instructions:
HOLD IF systolic blood pressure <130 while on Dilaudid.
IBgard 90 mg Capsule,Delayed,Extend.Release
90 mg PO BIDPRN PRN (Reason: ibs)
ferrous sulfate 325 mg (65 mg iron) tablet
325 mg PO DAILY Qty: 60 0RF
Rx Instructions:
Over the counter.
Take daily to help with anemia.
acetaminophen [Tylenol Extra Strength] 500 mg tablet
1,000 mg PO Q6H PRN (Reason: mild pain)
Rx Instructions:
DO NOT exceed >4000 mg daily.
propranolol 40 mg Tablet
40 mg PO BID
Essential One With Coq10
1 cap PO DAILY
mupirocin 2 % ointment
1 applic intranasal BID Qty: 1 0RF
Patient Comments:
started treatment on wednesday03/13/24 and completed BID, last took at home 03/15/24 in am
psyllium husk [Metamucil] 0.4 gram Capsule
0.4 g PO DAILY
aspirin 325 mg Tablet
325 mg PO DAILY 30 Days Qty: 30 0RF
docusate sodium 100 mg Capsule
100 mg PO BID 10 Days Qty: 20 0RF
dexamethasone 4 mg Tablet
4 mg PO BID Qty: 7 0RF
meloxicam 15 mg Tablet
15 mg PO DAILY 30 Days Qty: 30 0RF
hydromorphone 4 mg Tablet
4 mg PO Q4HPRN PRN (Reason: severe pain) 5 Days Qty: 20 0RF
Rx Instructions:
Dr Soto [id number]
Continuing therapy
Referrals:
Aguila Conroy MD [Family Provider] -
Interventions
Interventions:
*Risk Screen - Suicide Last Done: 03/20/24 20:09
*General Assessment Last Done: 03/20/24 20:09
*Neglect/Abuse Screening Last Done: 03/20/24 20:09
ED-Skin Assessment Last Done: 03/20/24 21:59
Discharge Date and Time
Print Language: SOMALI
--- NOTE | 2024-03-20 23:24 | HPS.HSE ---
Family Physician
-
Family Physician: Aguila Conroy
Chief Complaint
-
left hip blood loss
History of Present Illness
83-year-old female past medical history of hypertension, hyperlipidemia, recurrent left hip dislocation, osteoarthritis status post left total hip arthroplasty, prior left knee arthroplasty, prior right knee arthroplasty, orthostatic hypotension,
vasovagal syncope, GERD, colonic polyps, diverticulosis, irritable bowel syndrome, lumbar degenerative disc disease, lumbar stenosis, migraines, essential tremor, ambulatory dysfunction, hypothyroidism, iron deficiency anemia, osteopenia,
anxiety/depression, presenting for feeling oozing liquid today from the surgical site of the left hip replacement that she had on 03/15. She was concerned about losing blood. She denies any worsening pain of the left hip or lower extremity. She
denies any dizziness, chest pain or shortness of breath or any other symptoms.
She denies smoking or alcohol use.
Patient recently underwent revision left total hip arthroplasty without any complications on 03/15.
Medical History
Past Medical History
Past Medical History: Reports Other (hypertension, hyperlipidemia, recurrent left hip dislocation, osteoarthritis status post left total hip arthroplasty, prior left knee arthroplasty, prior right knee arthroplasty, orthostatic hypotension,
vasovagal syncope, GERD, colonic polyps, diverticulosis, irritable bowel syndrome, lumbar degene)
Past Surgical History: Reports Other (Gynecological (D & C) and Orthopedic (Bilateral knee replacements. Bila hip replacements. ))
Social History
Tobacco: Non-smoker
Alcohol: None
Drug: None
Family History
Family History: Not pertinent
Allergies / Home Medications
Allergies reflects when Allergies were last updated in [id number].
Home Medications with original date entered in [id number]
Allergy/Medication List:
Allergies
Allergy/AdvReac Type Severity Reaction Status Date / Time
gabapentin Allergy exacerbated Verified 03/20/24 20:09
tremor
morphine Allergy hallucinati Verified 03/20/24 20:09
ons
Sulfa (Sulfonamide Allergy Swelling Verified 03/20/24 20:09
Antibiotics) face as
young child
Home Medications
levothyroxine 50 mcg tablet (Levoxyl) 50 mcg PO DAILY Thyroid 03/22/10
fluoxetine 20 mg capsule 20 mg PO DAILY Mental Health/Anxiety 11/23/17
atorvastatin 20 mg tablet 20 mg PO HS High Cholesterol 04/16/23
omeprazole 20 mg tablet,delayed release 20 mg PO DAILYPRN PRN GERD 04/16/23
cholecalciferol (vitamin D3) 50 mcg (2,000 unit) tablet (Vitamin D3) 50 mcg PO DAILY Supplement 07/12/23
hydrochlorothiazide 12.5 mg tablet 12.5 mg PO DAILY Fluid Retention/Swelling #0 tabs 08/05/23
ferrous sulfate 325 mg (65 mg iron) tablet 325 mg PO DAILY #60 tabs 08/06/23
acetaminophen 500 mg tablet (Tylenol Extra Strength) 1,000 mg PO Q6H PRN mild pain 08/19/23
Essential One With Coq10 1 cap PO DAILY Supplement 02/18/24
propranolol 40 mg tablet 40 mg PO BID Blood Pressure 02/18/24
psyllium husk 0.4 gram capsule (Metamucil) 0.4 g PO DAILY Constipation 02/23/24
aspirin 325 mg tablet 325 mg PO DAILY Blood clot prevention/tx 30 days #30 tabs 03/17/24
dexamethasone 4 mg tablet 4 mg PO BID Anti-inflammatory #7 tabs 03/17/24
hydromorphone 4 mg tablet 4 mg PO Q4HPRN PRN severe pain 5 days #20 tabs 03/17/24
meloxicam 15 mg tablet 15 mg PO DAILY Anti-inflammatory 30 days #30 tabs 03/17/24
Review of Systems
-
History Source: Patient
A 12 point ROS was completed and negative except as noted: Yes
Constitutional: Reports No Symptoms
EENT: Reports No Symptoms
Respiratory: Reports No Symptoms
Cardiac: Reports No Symptoms
Abdomen/GI: Reports No Symptoms
: Reports No Symptoms
Musculoskeletal: Reports No Symptoms
Skin: Reports No Symptoms
Neurological: Reports No Symptoms
Endocrine: Reports No Symptoms
Hematologic/Lymphatic: Reports No Symptoms
Psych: Reports No Symptoms
Physical Exam
Vital Signs
Vital Signs
Temp Pulse Resp BP Pulse Ox
98.0 F 70 14 147/83 100
03/20/24 21:56 03/20/24 21:56 03/20/24 21:56 03/20/24 21:56 03/20/24 21:56
Physical Exam
General: Well Developed, Well Nourished and No Apparent Distress
HEENT: NormoCephalic, Moist mucous membranes and Atraumatic
Respiratory: Clear
Cardiac: S1/S2 and Regular Rhythm; No Murmur or Rub
GI: Soft, Non Tender, Non Distended and Normal Bowel Sounds; No Organomegaly
Rectal: Deferred by Provider
Musculoskeletal: No Clubbing, No Cyanosis, No Edema and Other (left hip bruising, serosanguinous discharge )
Skin: No Rash
Neuro: Nonfocal/grossly intact
Laboratory Results
-
03/20/24 20:16
03/20/24 20:16
Laboratory Results
Total Bilirubin 1.1 mg/dl (0.2-1.3) 03/20/24 20:16
AST 31 U/L (14-36) 03/20/24 20:16
ALT 32 U/L (0-35) 03/20/24 20:16
Alkaline Phosphatase 101 U/L (38-126) 03/20/24 20:16
Data Reviewed
-
Lab Data: Labs Reviewed by me
Old Records: Reviewed
Impression/Plan
-
IMPRESSION:
PLAN:
# Acute on chronic anemia secondary to postoperative blood loss after recent left total hip revision arthroplasty
-Hemoglobin dropped from 10.5 to 7.1
-2 units of blood
-Continue iron supplement
-Continue Tylenol, meloxicam, Dilaudid, dexamethasone for pain
-Continue aspirin for DVT prophylaxis
-Orthopedics consulted
Osteoarthritis status post prior total left arthroplasty, prior left total knee arthroplasty, right total knee arthroplasty,
Essential hypertension
-Continue hydrochlorothiazide
Hyperlipidemia
-Continue statin
History of orthostatic hypotension/vasovagal syncope
History of pulmonary nodules
GERD
-Continue omeprazole
Colonic polyps
Diverticulosis
Irritable bowel syndrome
Lumbar degenerative disc disease/lumbar stenosis
History of migraine
Benign essential tremor
-Continue propranolol
History of amatory dysfunction with history of falls
Hypothyroidism
-Continue levothyroxine
Osteopenia
Anxiety/depression
-Continue fluoxetine
Former smoker
Full code
DVT prophylaxis�SCDs
Regular diet
[2024-03-21] VITALS (14 sets, daily range): BP systolic 121–163; BP diastolic 55–75; PULSE 63–66; O2SAT 99; BMI 29.5; BMI 28.4
[2024-03-21] MEDS: SYNTHROID 50 MCG PO (05:53)
[2024-03-21 07:50] LABS: % Basophils 0.1 % (0-2); % Eosinophils 0.4 % (0-6); % Immature Granulocytes 4.7 % (0-0.5); % Lymphocytes 16.6 % (20.5-51.1); % Monocytes 11.8 % (1.7-9.3); % Neutrophils 66.4 % (42.2-75.2); Absolute Immature Granulocytes 0.3 10^3/uL (0-0.05); Absolute Lymphocytes 1.2 10^3/uL (1.2-3.4); Absolute Monocytes 0.9 10^3/uL (0.1-0.6); Absolute Neutrophils 4.8 10^3/uL (1.4-6.5); Hematocrit 26.2 % (37.0-47.0); Mean Corp Hgb Conc. 33.6 g/dL (33.0-37.0); Mean Corpuscular Hgb 31.1 pg (27.0-31.0); Mean Corpuscular Volume 92.6 fL (81.0-99.0); Mean Platelet Volume 9.7 fL (7.4-10.4); Nucleated Red Blood Cells % 0.3 %; Platelet Count 144 10^3/uL (130-400); Red Blood Cell Count 2.83 10^6/uL (4.20-5.40); Red Cell Dist. Width 15.1 % (11.5-14.5); White Blood Cell Count 7.2 10^3/uL (4.8-10.8)
[2024-03-21 07:57] LABS: Hemoglobin 8.8 g/dL (12.0-16.0)
[2024-03-21] MEDS: ORETIC PO (08:44)
--- NOTE | 2024-03-21 08:44 | VNURNOTE ---
Patient is current with [facility]. Only since 03/18. SN/PT. Will continue to follow for discharge plan, per records, son was staying with patient at home. Communicated with CM.
[2024-03-21 08:46] LABS: ALT (SGPT) 25 U/L (0-35); AST (SGOT) 30 U/L (14-36); Albumin 3.1 g/dl (3.5-5.0); Alkaline Phosphatase 77 U/L (38-126); Blood Urea Nitrogen 34 mg/dl (7-17); Calcium 8.8 mg/dl (8.4-10.2); Carbon Dioxide 22 mmol/L (22-30); Chloride 109 mmol/L (98-107); Estimated Creatinine Clearance 65 ml/min; Glucose 86 mg/dl (70-99); Potassium 4.5 mmol/L (3.5-5.1); Sodium 137 mmol/L (135-145); Total Bilirubin 1.9 mg/dl (0.2-1.3); Total Protein 5.2 g/dl (6.3-8.2); eGFR > 60.00
[2024-03-21] MEDS: MOBIC 15 MG PO (08:47)
[2024-03-21] MEDS: VITAMIN D3 (cholecalciferol) 50 MCG PO (08:47)
[2024-03-21] MEDS: PROZAC 20 MG PO (08:47)
[2024-03-21] MEDS: FEOSOL 325 MG PO (08:47)
[2024-03-21] MEDS: DECADRON 4 MG PO ×2 (08:47→19:18)
[2024-03-21] MEDS: METAMUCIL, KONSYL 1 PACKET PO (08:47)
[2024-03-21] MEDS: INDERAL 40 MG PO ×2 (08:47→19:18)
[2024-03-21] MEDS: ASPIRIN 325 MG PO (08:47)
--- NOTE | 2024-03-21 08:54 | W.PN.HOSP.TC ---
Today's Communication/Plan
-
Discharge tomorrow if hemoglobin is stable
Assessment / Plan
Assessment / Plan
HPI: 83-year-old female past medical history of hypertension, hyperlipidemia, recurrent left hip dislocation, osteoarthritis status post left total hip arthroplasty, prior left knee arthroplasty, prior right knee arthroplasty, orthostatic
hypotension, vasovagal syncope, GERD, colonic polyps, diverticulosis, irritable bowel syndrome, lumbar degenerative disc disease, lumbar stenosis, migraines, essential tremor, ambulatory dysfunction, hypothyroidism, iron deficiency anemia,
osteopenia, anxiety/depression, presenting for feeling oozing liquid today from the surgical site of the left hip replacement that she had on 03/15. She was concerned about losing blood. She denies any worsening pain of the left hip or lower
extremity. She denies any dizziness, chest pain or shortness of breath or any other symptoms.
She denies smoking or alcohol use.
Patient recently underwent revision left total hip arthroplasty without any complications on 03/15.
# Acute on chronic anemia secondary to postoperative blood loss after recent left total hip revision arthroplasty
Hemoglobin 8.8 today, status post 2 units of packed red blood cells on 03/20, increased from 7.1 upon admission. Her hemoglobin was 10.5 prior to her hip surgery
Continue iron supplement, pain medications, trend hemoglobin
Seen by orthopedic surgery, plan for discharge tomorrow if hemoglobin is stable
PT rec HH
#Left lower extremity edema
Dopplers negative for DVT, likely from surgery
Will order TEDS
Osteoarthritis status post prior total left arthroplasty, prior left total knee arthroplasty, right total knee arthroplasty
-PT/OT
Essential hypertension
-Continue hydrochlorothiazide
Hyperlipidemia
-Continue statin
History of orthostatic hypotension/vasovagal syncope
History of pulmonary nodules
GERD
-Continue omeprazole
Colonic polyps
Diverticulosis
Irritable bowel syndrome
Lumbar degenerative disc disease/lumbar stenosis
History of migraine
Benign essential tremor
-Continue propranolol
History of amatory dysfunction with history of falls
Hypothyroidism
-Continue levothyroxine
Osteopenia
Anxiety/depression
-Continue fluoxetine
Former smoker
DVT prophylaxis�aspirin 325 mg as per orthopedic surgery
Full code
Updated son on phone 03/21
Total time spent to see the patient on the floor, examine the patient, review data and lab results, discuss treatment plan with patient, nursing staff around 40 minutes.
Physical Exam
General: No acute distress
HEENT: Normocephalic, Atraumatic, EOMI, MMM
Respiratory: Clear to Auscultation bilaterally
Cardiac: Normal S1/S2, Regular Rate and Rhythm
GI: Soft, Nontender, Nondistended, Normal Bowel Sounds
Msk: Left hip incision dressed, with mild blood noted. Ecchymosis of left thigh noted
Extremities: No Clubbing, Cyanosis
Left lower extremity edema noted
Neuro: Nonfocal/Grossly Intact
Psych: Calm, Cooperative
Anticipated Discharge: Within 24 hours
Subjective/Interval History
-
Date of Service: March 21, 2024
Patient reports feeling better after her blood transfusion. Her left hip pain is tolerable. No fever, no vomiting.
Objective Data
-
Labs:
Laboratory Results
03/21/24
07:34
WBC 7.2
Hgb 8.8 L D
Hct 26.2 L
Plt Count 144 D
Sodium 137
Potassium 4.5
Chloride 109 H
Carbon Dioxide 22
BUN 34 H
Creatinine 0.7
Glucose 86
Calcium 8.8
Total Bilirubin 1.9 H
AST 30
ALT 25
Alkaline Phosphatase 77
Vital Signs:
Vital Signs
Temp Pulse Resp BP Pulse Ox
98.1 F 67 18 121/62 98
03/21/24 07:25 03/21/24 07:25 03/21/24 07:25 03/21/24 07:25 03/21/24 07:25
I&O
03/20/24 03/21/24 03/22/24
06:59 06:59 06:59
Intake Total 1220 / 1220
Balance 1220 / 1220
[2024-03-21] MEDS: TYLENOL 1000 MG PO ×2 (11:44→19:18)
--- NOTE | 2024-03-21 12:10 | CM ---
Reviewed the chart notes and spoke with the patient at the bedside. The patient was recently discharged to home with VN after revision L TH. The patient's son is currently staying with the patient to assist for the next two weeks or so. The
patient resides in a two story home with one step to enter. She has a half bath on first level where she is staying for the time being. The patient has a cane, rolling walker, and a raised toilet seat. The patient has not been to a SNF in the
past. The patient confirmed her pharmacy of choice is the [facility]. CM continues to be available to patient/family and is monitoring medical plan for needs at discharge.
Plan: Discharge to home with resumption of VN service.
--- NOTE | 2024-03-21 13:00 | W.PN.UPDATE ---
Update Note
Progress Note Update
83F s/p L hip revision ASHKAN for instability admitted for concern for blood loss
-hgb reduced on admission at 7.1, planned for 2 units PRBCs
-dressing has minimal strikethrough; no concern for superficial bleeding given the minimal amount of saturation of the aquacell dressing
-pending improvement of hgb/hct and patient asymptomatic with ambulation, may d/c and continue with postop rehab
[2024-03-21] MEDS: LIPITOR 20 MG PO (21:31)
[2024-03-22] MEDS: SYNTHROID 50 MCG PO (05:06)
[2024-03-22] MEDS: PROTONIX 40 MG PO (05:11)
[2024-03-22 05:27] LABS: Hematocrit 26.8 % (37.0-47.0); Hemoglobin 9.4 g/dL (12.0-16.0); Mean Corp Hgb Conc. 35.1 g/dL (33.0-37.0); Mean Corpuscular Hgb 30.9 pg (27.0-31.0); Mean Corpuscular Volume 88.2 fL (81.0-99.0); Mean Platelet Volume 9.6 fL (7.4-10.4); Platelet Count 163 10^3/uL (130-400); Red Blood Cell Count 3.04 10^6/uL (4.20-5.40); Red Cell Dist. Width 15.8 % (11.5-14.5); White Blood Cell Count 7.8 10^3/uL (4.8-10.8)
[2024-03-22 05:53] LABS: Blood Urea Nitrogen 30 mg/dl (7-17); Calcium 8.8 mg/dl (8.4-10.2); Carbon Dioxide 24 mmol/L (22-30); Chloride 106 mmol/L (98-107); Estimated Creatinine Clearance 76 ml/min; Glucose 120 mg/dl (70-99); Potassium 4.7 mmol/L (3.5-5.1); Sodium 135 mmol/L (135-145); eGFR > 60.00
[2024-03-22 08:04] VITALS: BP 140/68
[2024-03-22] MEDS: METAMUCIL, KONSYL PO (08:04)
--- NOTE | 2024-03-22 08:23 | W.PN.HOSP.TC ---
Today's Communication/Plan
-
Discharge today
Assessment / Plan
Assessment / Plan
HPI: 83-year-old female past medical history of hypertension, hyperlipidemia, recurrent left hip dislocation, osteoarthritis status post left total hip arthroplasty, prior left knee arthroplasty, prior right knee arthroplasty, orthostatic
hypotension, vasovagal syncope, GERD, colonic polyps, diverticulosis, irritable bowel syndrome, lumbar degenerative disc disease, lumbar stenosis, migraines, essential tremor, ambulatory dysfunction, hypothyroidism, iron deficiency anemia,
osteopenia, anxiety/depression, presenting for feeling oozing liquid today from the surgical site of the left hip replacement that she had on 03/15. She was concerned about losing blood. She denies any worsening pain of the left hip or lower
extremity. She denies any dizziness, chest pain or shortness of breath or any other symptoms.
She denies smoking or alcohol use.
Patient recently underwent revision left total hip arthroplasty without any complications on 03/15.
# Acute on chronic anemia secondary to postoperative blood loss after recent left total hip revision arthroplasty
Hemoglobin 9.4 today, was 8.8, status post 2 units of packed red blood cells on 03/20, increased from 7.1 upon admission. Her hemoglobin was 10.5 prior to her hip surgery
Continue iron supplement, pain medications, trend hemoglobin
Seen by orthopedic surgery
Medically stable for discharge, follow-up with orthopedic surgery in the office
PT rec [facility]
#Left lower extremity edema
Dopplers negative for DVT, likely from surgery
TEDS
Osteoarthritis status post prior total left arthroplasty, prior left total knee arthroplasty, right total knee arthroplasty
-PT/OT
Essential hypertension
-Continue hydrochlorothiazide
Hyperlipidemia
-Continue statin
History of orthostatic hypotension/vasovagal syncope
History of pulmonary nodules
GERD
-Continue omeprazole
Colonic polyps
Diverticulosis
Irritable bowel syndrome
Lumbar degenerative disc disease/lumbar stenosis
History of migraine
Benign essential tremor
-Continue propranolol
History of amatory dysfunction with history of falls
Hypothyroidism
-Continue levothyroxine
Osteopenia
Anxiety/depression
-Continue fluoxetine
Former smoker
DVT prophylaxis�aspirin 325 mg as per orthopedic surgery through 04/11/24
Full code
Updated son on phone 03/21
Physical Exam
General: No acute distress
HEENT: Normocephalic, Atraumatic, EOMI, MMM
Respiratory: Clear to Auscultation bilaterally
Cardiac: Normal S1/S2, Regular Rate and Rhythm
GI: Soft, Nontender, Nondistended, Normal Bowel Sounds
Msk: Left hip incision dressed, with mild blood noted. Ecchymosis of left thigh noted
Extremities: No Clubbing, Cyanosis
Left lower extremity edema noted
Neuro: Nonfocal/Grossly Intact
Psych: Calm, Cooperative
Anticipated Discharge: Today
Subjective/Interval History
-
Date of Service: March 22, 2024
Patient complains of some reflux. No chest pain, shortness of breath, or palpitations. No fever, no vomiting.
Objective Data
-
Labs:
Laboratory Results
03/22/24
05:02
WBC 7.8
Hgb 9.4 L
Hct 26.8 L
Plt Count 163
Sodium 135
Potassium 4.7
Chloride 106
Carbon Dioxide 24
BUN 30 H
Creatinine 0.6
Glucose 120 H
Calcium 8.8
Vital Signs:
Vital Signs
Temp Pulse Resp BP Pulse Ox
97.9 F 58 17 140/68 95
03/22/24 08:04 03/22/24 08:04 03/22/24 08:04 03/22/24 08:04 03/22/24 08:04
I&O
03/21/24 03/22/24 03/23/24
06:59 06:59 06:59
Intake Total 1220 / 1220 1200 / 1200
Balance 1220 / 1220 1200 / 1200
[2024-03-22] MEDS: ORETIC 12.5 MG PO (09:14)
[2024-03-22] MEDS: FEOSOL 325 MG PO (09:14)
[2024-03-22] MEDS: INDERAL 40 MG PO (09:14)
[2024-03-22] MEDS: ASPIRIN 325 MG PO (09:15)
[2024-03-22] MEDS: DECADRON 4 MG PO (09:15)
[2024-03-22] MEDS: MOBIC 15 MG PO (09:15)
[2024-03-22] MEDS: VITAMIN D3 (cholecalciferol) 50 MCG PO (09:15)
[2024-03-22] MEDS: PROZAC 20 MG PO (09:15)
[2024-03-22 10:23] VITALS: BP 117/64; BP 160/76; PULSE 72; O2SAT 100
--- NOTE | 2024-03-22 11:37 | W.DCSUMMARY ---
Discharge Summary
Discharge Data
Date of Admission: 03/20/24
Date of Discharge: 03/22/24
-
Pending Results: No
Hospital Course
Discharge diagnosis:
Acute on chronic anemia secondary to postoperative blood loss after recent left hip total arthroplasty revision
Left lower extremity edema
Osteoarthritis
Benign essential hypertension
Hyperlipidemia
Benign essential tremor
History of ambulatory dysfunction with falls
Hypothyroidism
Osteopenia
Gastroesophageal reflux disease
Consults: Orthopedic surgery
US Periph Venous LOWER Ext LT
No evidence of deep venous thrombosis of the left lower extremity.
Hospital course:
83-year-old female with a past medical history of hypertension, hyperlipidemia, recurrent left hip dislocation, osteoarthritis status post left total hip arthroplasty, orthostatic hypotension, GERD, irritable bowel syndrome, essential tremor,
ambulatory dysfunction, hypothyroidism, osteopenia, and anxiety/depression was admitted for acute on chronic anemia. Patient recently had revision of her left hip arthroplasty on 03/15/2024. She reports bleeding from the surgical site. Patient's
hemoglobin was 7.1 upon admission, it was 10.5 prior to the surgery. Patient was transfused 2 units of packed red blood cells. Her hemoglobin improved to 8.8, and was 9.4 on the day of discharge.
Patient was seen in conjunction with orthopedic surgery, who states that her wound is healing fine. She was seen by PT, who recommends home PT. Patient is medically stable for discharge. She needs to continue aspirin 325 mg daily for DVT
prophylaxis through 04/11/2024. She needs to follow-up with orthopedic surgery in the office in 1-2 weeks, and her primary care doctor in 1 week.
Disposition: Home with home care
Discharge planning: Required 35 minutes
Discharge Plan
-
Patient Disposition: Home with Home Care
Discharge Diagnosis/Procedures: Acute on chronic anemia, recent left total hip revision, osteoarthritis, hypertension
Condition: Good
Diet: Low Fat and Low Cholesterol
Activity: As tolerated
Driving Restrictions: As prior to admission
Blood Work: CBC with your PCP in 1 week
Activity Restrictions/Additional Instructions:
Continue aspirin 325 mg for blood clot prevention through 04/11/2024.
Follow-up with your primary care doctor in 1 week, and orthopedic surgery in the office in 2-3 weeks.
Referrals:
Aguila Conroy MD [Family Provider] - in one week
Maximo Barlow MD [Active] - in two to three weeks
Prescriptions:
Continued
levothyroxine [Levoxyl] 50 MCG tablet
50 mcg PO DAILY
fluoxetine 20 MG capsule
20 mg PO DAILY
atorvastatin 20 mg Tablet
20 mg PO HS
omeprazole 20 mg Tablet,Delayed Release (Dr/Ec)
20 mg PO DAILYPRN PRN (Reason: GERD)
cholecalciferol (vitamin D3) [Vitamin D3] 50 mcg (2,000 unit) Tablet
50 mcg PO DAILY
hydrochlorothiazide 12.5 mg Tablet
12.5 mg PO DAILY Qty: 0 0RF
Rx Instructions:
HOLD IF systolic blood pressure <130 while on Dilaudid.
ferrous sulfate 325 mg (65 mg iron) tablet
325 mg PO DAILY Qty: 60 0RF
acetaminophen [Tylenol Extra Strength] 500 mg tablet
1,000 mg PO Q6H PRN (Reason: mild pain)
Rx Instructions:
DO NOT exceed >4000 mg daily.
propranolol 40 mg Tablet
40 mg PO BID
Essential One With Coq10
1 cap PO DAILY
psyllium husk [Metamucil] 0.4 gram Capsule
0.4 g PO DAILY
meloxicam 15 mg Tablet
15 mg PO DAILY 30 Days Qty: 30 0RF
aspirin 325 mg Tablet
325 mg PO DAILY 30 Days Qty: 30 0RF
Discontinued
dexamethasone 4 mg Tablet
4 mg PO BID Qty: 7 0RF
hydromorphone 4 mg Tablet
4 mg PO Q4HPRN PRN (Reason: severe pain) 5 Days Qty: 20 0RF
Rx Instructions:
Dr Soto [id number]
Continuing therapy
Discharge Orders:
Discharge Patient (As Directed); Ordered 03/22/24
Ordered By: Bijan Saldaña
Discharge Date and Time
Discharge Date/Time: 03/22/24 13:57
Print Language: SPANISH
[2024-03-22 12:37] VITALS: BP 133/71
--- NOTE | 2024-03-22 13:02 | CM ---
Addendum entered by Billie Vital RN 03/22/24 13:04:
Correction: patient's son will transport patient home.
Original Note:
Reviewed the chart notes. Patient for discharge to home with [facility] services. Patient's spouse to transport.
Plan: Discharge to home with [facility].
--- NOTE | 2024-03-22 16:44 | VNURNOTE ---
[facility] resumption of care completed in [facility] after review of chart.
== END 2024-03-22 13:57 | disposition home health service (06) | DRG 920 ==
LOC: 2 SOUTH 23:42
PROVIDERS: Emergency Medicine; ADMITTING PHYSICIAN Hospitalist; ATTENDING PHYSICIAN Family Medicine; EMERGENCY PHYSICIAN Student in an Organized Health Care Education/Training Program; FAMILY PHYSICIAN Family Medicine
PROC: 30233N1 Transfusion of Nonautologous Red Blood Cells into Peripheral Vein, Percutaneous Approach (ICD-10-PCS; 2024-03-21)
DX: M96.830 Postprocedural hemorrhage of a musculoskeletal structure following a musculoskeletal system procedure (principal); D62 Acute posthemorrhagic anemia; M51.06 Intervertebral disc disorders with myelopathy, lumbar region; E78.00 Pure hypercholesterolemia, unspecified; K21.9 Gastro-esophageal reflux disease without esophagitis; I10 Essential (primary) hypertension; E03.9 Hypothyroidism, unspecified; G25.0 Essential tremor; F32.A Depression, unspecified; F41.9 Anxiety disorder, unspecified; M85.80 Other specified disorders of bone density and structure, unspecified site; D50.9 Iron deficiency anemia, unspecified; M19.90 Unspecified osteoarthritis, unspecified site; M48.061 Spinal stenosis, lumbar region without neurogenic claudication; G43.909 Migraine, unspecified, not intractable, without status migrainosus; R60.0 Localized edema; Z96.642 Presence of left artificial hip joint; Z96.653 Presence of artificial knee joint, bilateral; Y83.8 Other surgical procedures as the cause of abnormal reaction of the patient, or of later complication, without mention of misadventure at the time of the procedure; Y92.9 Unspecified place or not applicable; Z87.891 Personal history of nicotine dependence; Z79.82 Long term (current) use of aspirin; Z79.1 Long term (current) use of non-steroidal anti-inflammatories (NSAID); Z79.890 Hormone replacement therapy; Z88.5 Allergy status to narcotic agent; Z88.2 Allergy status to sulfonamides; Z88.8 Allergy status to other drugs, medicaments and biological substances; Z87.19 Personal history of other diseases of the digestive system; Z86.010 Personal history of colon polyps; Z91.81 History of falling
CPT/HCPCS: 80048; 80053; 83735; 85025; 85027; 86850; 86900; 86901; 86920; 87070; 93971; 97116; 97162; 97166; 99285; P9016

== ENCOUNTER → 2024-03-29 14:00 | Outpatient (REF) | payer MEDICARE, OTHER, SELFPAY ==
[2024-03-29 14:27] LABS: Hematocrit 28.1 % (37.0-47.0); Hemoglobin 9.3 g/dL (12.0-16.0); Mean Corp Hgb Conc. 33.1 g/dL (33.0-37.0); Mean Corpuscular Hgb 31.3 pg (27.0-31.0); Mean Corpuscular Volume 94.6 fL (81.0-99.0); Mean Platelet Volume 10.5 fL (7.4-10.4); Platelet Count 211 10^3/uL (130-400); Red Blood Cell Count 2.97 10^6/uL (4.20-5.40); Red Cell Dist. Width 15.9 % (11.5-14.5); White Blood Cell Count 8.4 10^3/uL (4.8-10.8)
== END ==
LOC: CLAB 14:00
PROVIDERS: ATTENDING PHYSICIAN Family Medicine
DX: D50.9 Iron deficiency anemia, unspecified (principal)
CPT/HCPCS: 36415; 85027

== ENCOUNTER 2024-05-18 10:45 | Outpatient (RCR) | payer MEDICARE, OTHER, SELFPAY | END 2024-05-18 23:59 | disposition home or self-care (01) | LOC: RPT 10:45 | PROVIDERS: ATTENDING PHYSICIAN Physician Assistant Surgical; FAMILY PHYSICIAN Family Medicine | DX: Z96.642 Presence of left artificial hip joint (principal); Z73.6 Limitation of activities due to disability; Z96.649 Presence of unspecified artificial hip joint | CPT/HCPCS: 97110; 97140; 97163; 97530 ==

== ENCOUNTER → 2024-05-19 11:53 | Outpatient (REF) | payer MEDICARE, OTHER, SELFPAY ==
[2024-05-19 13:34] LABS: % Basophils 0.4 % (0-2); % Eosinophils 2.5 % (0-6); % Immature Granulocytes 0.2 % (0-0.5); % Lymphocytes 22.6 % (20.5-51.1); % Monocytes 12.5 % (1.7-9.3); % Neutrophils 61.8 % (42.2-75.2); Absolute Eosinophils 0.1 10^3/uL (0-0.7); Absolute Lymphocytes 1.3 10^3/uL (1.2-3.4); Absolute Monocytes 0.7 10^3/uL (0.1-0.6); Absolute Neutrophils 3.5 10^3/uL (1.4-6.5); Hematocrit 29.8 % (37.0-47.0); Mean Corp Hgb Conc. 33.6 g/dL (33.0-37.0); Mean Corpuscular Hgb 31.8 pg (27.0-31.0); Mean Corpuscular Volume 94.9 fL (81.0-99.0); Mean Platelet Volume 9.9 fL (7.4-10.4); Nucleated Red Blood Cells % 0 %; Platelet Count 195 10^3/uL (130-400); Red Blood Cell Count 3.14 10^6/uL (4.20-5.40); Red Cell Dist. Width 13.8 % (11.5-14.5); White Blood Cell Count 5.6 10^3/uL (4.8-10.8)
== END ==
LOC: REG 11:53
PROVIDERS: ATTENDING PHYSICIAN Family Medicine
DX: D64.9 Anemia, unspecified (principal)
CPT/HCPCS: 36415; 85025

== ENCOUNTER 2024-06-15 13:52 | Outpatient (RCR) | payer MEDICARE, OTHER, SELFPAY | END 2024-06-15 23:59 | disposition home or self-care (01) | LOC: RPT 13:52 | PROVIDERS: ATTENDING PHYSICIAN Physician Assistant Surgical; FAMILY PHYSICIAN Family Medicine | DX: Z96.649 Presence of unspecified artificial hip joint (principal); Z96.642 Presence of left artificial hip joint; Z73.6 Limitation of activities due to disability | CPT/HCPCS: 97110; 97140; 97530 ==

== ENCOUNTER 2024-07-18 10:58 | Outpatient (RCR) | payer MEDICARE, OTHER, SELFPAY | END 2024-07-18 23:59 | disposition home or self-care (01) | LOC: RPT 10:58 | PROVIDERS: ATTENDING PHYSICIAN Physician Assistant Surgical; FAMILY PHYSICIAN Family Medicine | DX: Z47.1 Aftercare following joint replacement surgery (principal); Z96.642 Presence of left artificial hip joint; Z73.6 Limitation of activities due to disability | CPT/HCPCS: 97110; 97116; 97140; 97530 ==

== ENCOUNTER 2024-08-15 10:52 | Outpatient (RCR) | payer MEDICARE, OTHER, SELFPAY | END 2024-08-15 23:59 | disposition home or self-care (01) | LOC: RPT 10:52 | PROVIDERS: ATTENDING PHYSICIAN Physician Assistant Surgical; FAMILY PHYSICIAN Family Medicine | DX: Z47.1 Aftercare following joint replacement surgery (principal); Z96.642 Presence of left artificial hip joint; Z73.6 Limitation of activities due to disability | CPT/HCPCS: 97110; 97530 ==

== ENCOUNTER 2024-09-19 10:51 | Outpatient (RCR) | payer MEDICARE, OTHER, SELFPAY | END 2024-09-19 23:59 | disposition home or self-care (01) | LOC: RPT 10:51 | PROVIDERS: ATTENDING PHYSICIAN Physician Assistant Surgical; FAMILY PHYSICIAN Family Medicine | DX: Z47.1 Aftercare following joint replacement surgery (principal); Z96.642 Presence of left artificial hip joint; Z73.6 Limitation of activities due to disability | CPT/HCPCS: 97110; 97530 ==

== ENCOUNTER → 2024-10-24 16:08 | Outpatient (REF) | payer MEDICARE, OTHER, SELFPAY ==
[2024-10-24 17:23] LABS: ALT (SGPT) 24 U/L (0-35); AST (SGOT) 26 U/L (14-36); Albumin 4.2 g/dl (3.5-5.0); Alkaline Phosphatase 143 U/L (38-126); Blood Urea Nitrogen 25 mg/dl (7-17); Calcium 9.5 mg/dl (8.4-10.2); Carbon Dioxide 28 mmol/L (22-30); Chloride 102 mmol/L (98-107); Glucose 86 mg/dl (70-99); Iron 112 ug/dl (37-170); Potassium 4.5 mmol/L (3.5-5.1); Sodium 135 mmol/L (135-145); Total Bilirubin 0.8 mg/dl (0.2-1.3); Total Protein 6.4 g/dl (6.3-8.2); eGFR > 60.00
[2024-10-24 17:24] LABS: % Basophils 0.3 % (0-2); % Eosinophils 1.3 % (0-6); % Immature Granulocytes 0.3 % (0-0.5); % Lymphocytes 12.6 % (20.5-51.1); % Monocytes 9.9 % (1.7-9.3); % Neutrophils 75.6 % (42.2-75.2); Absolute Eosinophils 0.1 10^3/uL (0-0.7); Absolute Lymphocytes 0.9 10^3/uL (1.2-3.4); Absolute Monocytes 0.7 10^3/uL (0.1-0.6); Absolute Neutrophils 5.4 10^3/uL (1.4-6.5); Hematocrit 35.8 % (37.0-47.0); Hemoglobin 11.6 g/dL (12.0-16.0); Mean Corp Hgb Conc. 32.4 g/dL (33.0-37.0); Mean Corpuscular Hgb 31.8 pg (27.0-31.0); Mean Corpuscular Volume 98.1 fL (81.0-99.0); Mean Platelet Volume 11.1 fL (7.4-10.4); Nucleated Red Blood Cells % 0 %; Platelet Count 179 10^3/uL (130-400); Red Blood Cell Count 3.65 10^6/uL (4.20-5.40); Red Cell Dist. Width 13.2 % (11.5-14.5); White Blood Cell Count 7.2 10^3/uL (4.8-10.8)
[2024-10-24 17:32] LABS: Percent Saturation 39 % (20-50); Total Iron Binding Capacity 281 ug/dl (265-497)
== END ==
LOC: CLAB 16:08
PROVIDERS: ATTENDING PHYSICIAN Physician Assistant Medical
DX: I10 Essential (primary) hypertension (principal); D50.0 Iron deficiency anemia secondary to blood loss (chronic)
CPT/HCPCS: 36415; 80053; 82728; 83540; 83550; 85025

== ENCOUNTER 2025-01-10 11:54 | Outpatient (RCR) | payer MEDICARE, OTHER, SELFPAY | END 2025-01-10 23:59 | disposition home or self-care (01) | LOC: RPT 11:54 | PROVIDERS: ATTENDING PHYSICIAN Physician Assistant Surgical; FAMILY PHYSICIAN Family Medicine | DX: Z47.1 Aftercare following joint replacement surgery (principal); Z96.642 Presence of left artificial hip joint; Z73.6 Limitation of activities due to disability | CPT/HCPCS: 97110; 97112; 97530 ==

== ENCOUNTER 2025-01-31 11:51 | Outpatient (RCR) | payer MEDICARE, OTHER, SELFPAY | END 2025-01-31 13:08 | disposition home or self-care (01) | LOC: RPT 11:51 | PROVIDERS: ATTENDING PHYSICIAN Physician Assistant Surgical; FAMILY PHYSICIAN Family Medicine | DX: Z47.1 Aftercare following joint replacement surgery (principal); Z73.6 Limitation of activities due to disability; Z96.642 Presence of left artificial hip joint; R26.89 Other abnormalities of gait and mobility; M62.81 Muscle weakness (generalized) | CPT/HCPCS: 97110; 97530 ==

== ENCOUNTER 2025-03-27 06:26 | Day surgery (SDC) | payer MEDICARE, OTHER, SELFPAY | END 2025-03-27 14:15 | disposition home or self-care (01) | LOC: GI 06:26 | PROVIDERS: ATTENDING PHYSICIAN Specialist | DX: Z12.11 Encounter for screening for malignant neoplasm of colon (principal); K57.30 Diverticulosis of large intestine without perforation or abscess without bleeding; Z86.0101 Personal history of adenomatous and serrated colon polyps | CPT/HCPCS: G0105 ==

== ENCOUNTER → 2025-07-16 13:21 | Outpatient (REF) | payer MEDICARE, OTHER, SELFPAY | LOC: RCS 13:21 | PROVIDERS: ATTENDING PHYSICIAN Internal Medicine Cardiovascular Disease; FAMILY PHYSICIAN Family Medicine | DX: R06.89 Other abnormalities of breathing (principal); I10 Essential (primary) hypertension | CPT/HCPCS: 93306 ==